=== PATIENT | male | born 1970 | race Two or more races ===

== ENCOUNTER 2022-12-07 11:40 | Emergency (ER) | payer OTHER ==
[2022-12-07] MEDS ORDERED: Lidocaine 1% PF 2 ML SDV INJECT ONE (11:54)
[2022-12-07] MEDS ORDERED: Diphtheria,Pertussis(Acell),Tetanus Vaccine 0.5 ML Syringe IM ONE (11:54)
== END 2022-12-07 12:59 | disposition home or self-care (01) ==
LOC: MW.ED 11:40
DX: S61.215A Laceration without foreign body of left ring finger without damage to nail, initial encounter (principal); Z23 Encounter for immunization; W26.8XXA Contact with other sharp object(s), not elsewhere classified, initial encounter
CPT/HCPCS: 12001; 90471; 90715; 99282-25; J3490

== ENCOUNTER 2022-12-17 16:48 | Emergency (ER) | payer OTHER | END 2022-12-17 17:00 | disposition left against medical advice (07) | LOC: MW.ED 16:48 | DX: S61.215D Laceration without foreign body of left ring finger without damage to nail, subsequent encounter (principal); Z48.02 Encounter for removal of sutures; W26.8XXD Contact with other sharp object(s), not elsewhere classified, subsequent encounter | CPT/HCPCS: 99281 ==